=== PATIENT | male | born 1985 | race Two or more races ===

== ENCOUNTER 2020-01-06 16:52 | Emergency (ER) | payer OTHER ==
[~2020-01-06] VITALS: Ht 170.2 cm; Wt 68.0 kg
--- NOTE | 2020-01-06 17:11 | NUR ---
ED Nurse Note: Pt walked into ED w/ laceration from an hour ago at work. Pt was cutting vegetables and cut L hand 3rd finger. Pt states pain is 4/10, no numbness or tingling. There is scant sanguineous drainage on finger. Pt is alert and orientedx4, ambulatory.
[2020-01-06 17:15] VITALS: BP 110/61
[2020-01-06] MEDS ORDERED: Tetanus/Diptheria/Pertussis IM ONE (17:15)
[2020-01-06] MEDS ORDERED: Lidocaine 1% MPF 10mg/ml 5ml INJ ONE (17:30)
--- NOTE | 2020-01-06 18:09 | Emergency Room Report ---
History of Present Illness General Chief Complaint: Laceration Source: Patient Present Illness HPI 34-year-old male presents to the emergency department complaining of acute onset of a right middle finger laceration sustained allegedly while at work. Patient reports there was a knife underneath the cutting board and when he slid the cutting board over he sustained his laceration. Patient denies taking blood thinning medications he denies history of blood dyscrasias. Patient is not sure when his last tetanus vaccination was. He denies any significant past medical history. He reports bleeding has subsided at this time. Patient states he is right-hand dominant. He denies pain at this time. He denies paresthesias or loss of gross motor movements to the affected extremity. Allergies: Coded Allergies: No Known Allergies (Unverified , 01/06/20) Patient History Past Medical History: see triage record Past Surgical History: none Pertinent Family History: none Reviewed Nursing Documentation: PMH: Agreed; PSxH: Agreed Nursing Documentation-PMH Past Medical History: No Stated History Review of Systems All Other Systems: negative except mentioned in HPI Physical Exam Vital Signs Date Time Temp Pulse Resp B/P (MAP) Pulse Ox O2 Delivery O2 Flow Rate FiO2 01/06/20 17:02 98.2 60 18 115/63 (80) 95 Room Air Sp02 EP Interpretation: reviewed, normal General Appearance: no apparent distress, alert, GCS 15, non-toxic Head: normocephalic, atraumatic Eyes: bilateral eye normal inspection, bilateral eye PERRL ENT: hearing grossly normal, normal voice Neck: full range of motion Respiratory: lungs clear, normal breath sounds, speaking full sentences Cardiovascular #1: regular rate, rhythm, normal capillary refill Musculoskeletal: normal range of motion, gait/station normal, non-tender Neurologic: alert, motor strength/tone normal, oriented x3, sensory intact, responsive, speech normal, grossly normal, normal inspection Psychiatric: judgement/insight normal Skin: laceration - 2 cm Distal RMF flap laceration approx 2 cm in length. NVI. No tendon involvement. Not currently bleeding. does not involve the nail or nail bed. Lymphatic: no adenopathy Procedures Laceration/Wound Repair Laceration/Wound Repair : Consent: Verbal Wound Location: upper extremity - RMF Wound's Depth, Shape: flap Wound Length (cm): 2 Wound Explored: clean Irrigated w/ Saline (ccs): 500 Anesthesia: 1% Lidocaine Volume Anesthetic (ccs): 5 Wound Repaired With: sutures Suture Size/Type: 4:0, other - ethilon Number of Sutures: 7 Layer Closure?: No Sterile Dressing Applied?: Yes Splint Applied?: Yes - RMF finger splint Type of Splint Applied: Finger splint Sling Applied?: No Patient Tolerated: Well Complications: None Medical Decision Making PA Attestation Dr. Horton Is my supervising Physician whom patient management has been discussed with. Diagnostic Impression: Primary Impression: Laceration ER Course 34-year-old male presents to the emergency department complaining of acute onset of a right middle finger laceration sustained allegedly while at work. Patient reports there was a knife underneath the cutting board and when he slid the cutting board over he sustained his laceration. Patient denies taking blood thinning medications he denies history of blood dyscrasias. Patient is not sure when his last tetanus vaccination was. He denies any significant past medical history. He reports bleeding has subsided at this time. Patient states he is right-hand dominant. He denies pain at this time. He denies paresthesias or loss of gross motor movements to the affected extremity. Ddx considered but are not limited to laceration, tendon injury, cellulitis, amputation Vital signs: are WNL, pt. is afebrile H&PE are most consistent with: 2 cm Distal RMF flap laceration approx 2 cm in length. NVI ORDERS: none required at this time, the diagnosis is clinical ED INTERVENTIONS: -Tetanus vaccine was administered as pt. vaccination status was unknown. - The wound was copiously irrigated with normal saline, and explored for foreign body for which no FB was found. - pt. is anesthetized with 1%lidocaine without. epi. - The wound was approximated and closed using 7 interrupted 4.0 Ethilon sutures. -Bacitracin and sterile dressing is applied. Right middle finger splint applied by manufacturing test technician. Pt. remains neurovascularly intact. Discussed with patient: That we make every effort to approximate the laceration as best as we can so that scarring will be as cosmetically pleasing as possible with our limited cosmetic skill set in the Emergency dept. Regardless of our best efforts there will be scarring after laceration repair. The extent of scarring is unknown at this time. DISCHARGE: At this time pt. is stable for d/c to home. Will provide printed patient care instructions, and any necessary prescriptions. Care plan and follow up instructions have been discussed with the patient prior to discharge. Last Vital Signs Date Time Temp Pulse Resp B/P (MAP) Pulse Ox O2 Delivery O2 Flow Rate FiO2 01/06/20 17:15 98.2 97 16 110/61 97 Room Air Disposition: HOME, SELF-CARE Condition: Stable Scripts Bacitracin (Bacitracin) 28.4 Gm Oint...g. 1 APPLIC TOPIC DAILY, #28.5 GM Prov: Yolie Fortune 01/06/20 Cephalexin* (KEFLEX*) 500 Mg Capsule 500 MG ORAL EVERY 12 HOURS for 7 Days, #14 CAP 0 Refills Prov: Yolie Fortune 01/06/20 Referrals: NOT CHOSEN IPA/MD,REFERRING (PCP) Departure Forms: Return to Work Return to Work Date: Jan 07, 2020 Work Restrictions: No Heavy Lifting, No Prolonged Standing Other Restrictions: Limited use of right hand, keep covered with a glove and dry. Return to Full Activity: Jan 16, 2020 Patient Instructions: Laceration Care, Adult Additional Instructions: Take medications as directed. Sutures to be removed in 10 days. Follow up with a Primary Care Provider in 3-5 days, even if your symptoms have resolved. Return sooner to ED if new symptoms occur, or current symptoms become worse. - Please note that this Emergency Department Report was dictated using [employer] examiner machine technology software, occasionally this can lead to erroneous entry secondary to interpretation by the dictation equipment. Yolie Fortune Jan 06, 2020 18:09
[2020-01-06] MEDS ORDERED: BACITRACIN15 GM TOPIC (18:10)
[2020-01-06] MEDS ORDERED: CEPHALEXIN500 MG ORAL (18:10)
--- NOTE | 2020-01-06 18:38 | NUR ---
ER DISCHARGE NOTE: Patient is cleared to be discharged per ERMD, pt is aox4, on room air, with stable vital signs. pt was given dc and prescription instructions, pt was able to verbalize understanding, pt id band removed. pt is able to ambulate with steady gait. pt took all belongings. pt provided instructions on hand wound care.
[2020-01-06 18:39] VITALS: BP 114/67
== END 2020-01-06 18:40 | disposition home or self-care (01) ==
LOC: EMR 17:59
DX: S61.212A Laceration without foreign body of right middle finger without damage to nail, initial encounter (principal); Z23 Encounter for immunization; W26.0XXA Contact with knife, initial encounter; Y92.9 Unspecified place or not applicable; Y99.0 Civilian activity done for income or pay
CPT/HCPCS: 90471; 90715; 99283